=== PATIENT | female | born 1965 | race Caucasian/White ===

== ENCOUNTER → 2019-10-03 08:00 | Outpatient (CLI) | payer BC | END | disposition home or self-care (01) | LOC: D.HCCECHO 08:00 | PROVIDERS: ATTEND Internal Medicine Cardiovascular Disease | DX: R06.09 Other forms of dyspnea (principal) ==

== ENCOUNTER 2019-10-27 07:11 | Outpatient (CLI) | payer BC ==
[~2019-10-27] VITALS: Ht 167.6 cm; Wt 81.8 kg
--- NOTE | ~2019-10-27 | HEMODYNAMI ---
PATIENT:SHAN VILLELA MEDICAL RECORD: [id number] : 69 LOCATION:[facility] ADMISSION DATE: 10/27/19 Generatedon:10/27/201910:24 Patient name: SAHN VILLELA Patient #: [id number] SSN: [id number] : 1965 Date of study: 10/27/2019 Page: Of Hemodynamic Procedure Report Patient Data Patient Demographics Procedure consent was obtained First Name: SHAN Gender: Female Last Name: MANOHAR : 1965 [facility] Initial: B Age: 54 year(s) Patient #: [id number] Race: SSN: [id number] Additional ID: [id number] Contact details Address: [address] [place] [address] State: [place] City: [place] Zip code: [facility] Past Medical History Performed procedures and imaging results Date Procedure Procedure Results Comments Standard Positive->Intermediate exercise stress risk test Allergies: No known allergies Admission Admission Data Admission Date: 10/27/2019 Admission Time: 7:11 Arrival Date: 10/27/2019 Arrival Time: 0:00 Admit Source: Other Insurance Payor: Private health insurance [facility] #: [id number] Height (in.): 66 BSA: 1.91 (m2) Height (cm.): 167.64 BMI: 29.11 (kg/m2) Weight (lbs.): 180.34 Weight (kg.): 81.8 Lab Results Lab Result Date: 10/27/2019 Lab Result Time: 0:00 Biochemistry Name Units Result Min Max BUN mg/dl 20 --(----)*- 7 18 Creatinine mg/dl 0.7 --(*---)-- 0.6 1.3 eGFR ml/min 90 --(*---)-- 90 120 NONAFRICAN CBC Name Units Result Min Max Hematocrit % 38.3 *-(----)-- 42 54 Hemoglobin g/dl 12.5 *-(----)-- 13.5 17.5 Procedure Procedure Types Cath Procedure Diagnostic Procedure [facility] w/Coronaries Procedure Description Procedure Date Procedure Date: 10/27/2019 Procedure Start Time: 10:09 Procedure End Time: 10:22 Procedure Staff Name Function Damien Yan MD Performing Physician Amarilis Rogel RT Monitor Mary Diaz RN Nurse Dimitri Bustillo RT Scrub Indication Pulmonary hypertension Procedure Data Cath Procedure Fluoroscopy Diagnostic fluoroscopy Total fluoroscopy Time: 2.6 time: 2.6 min min Diagnostic fluoroscopy Total fluoroscopy dose: 338 dose: 338 mGy mGy Contrast Material Contrast Material Type Amount (ml) Isovue 370 52 Entry Location Entry Primary Successful Side Size Upsize Upsize Entry Closure Howard ccessful Closure Location (Fr) 1 (Fr) 2 (Fr) Remarks Device Remarks Radial Right 6 Fr Mechanical artery Short Compression Estimated blood loss: 5 ml Diagnostic catheters Device Type Used For End Catheter Placement DIAGNOSTIC [place] 110cm 5 Procedure Fr catheter ([id number]) Procedure Complications No complications Procedure Medications Medication Administration Route Dosage Oxygen etCO2 Nasal cannula 2 l/min Lidocaine 2% added to field 20 Heparin Flush Bag added to field 2 bags (1000units/500ml NS) 0.9% NaCl I.V. 100 ml/hr Radial Cocktail I.A. 1 syringe (Verapamil 2mg/Nitro 400mcg/Heparin 1500units) Versed I.V. 1 mg Fentanyl I.V. 50 mcg Versed I.V. 1 mg Fentanyl I.V. 50 mcg Versed I.V. 1 mg Hemodynamics Rest BSA: 1.91 (m2) HGB: 12.5 (g/dl) O2 Consumption: Estimated: 190.23 (ml/min) O2 Co nsumption indexed: Estimated:99.6 (ml/min/m) Heart Rate: 76 (bpm) Pressure Samples Time Site Value (mmHg) Purpose Heart Use Rate(bpm) 10:15 LV 123/4,11 Snapshot 65 Gradients Valve Time Site Site Mean SEP/DFP Peak To Heart Use 1 2 (mmHg) (sec/min) Peak Rate (mmHg) (bpm) Aortic 10:15 LV AO 80 Snapshots Pre Cath Intra NCS Post Cath Vital Signs Time Heart Resp SPO2 etCO2 NIBP (mmHg) Rhythm Pain Sedation Rate (ipm) (%) (mmHg) Status Level (bpm) 9:57:26 70 16 97 0 126/75(115) NSR 0 (11) 10(A) , No pain 10:01:36 76 18 97 30.4 144/86(118) NSR 0 (11) 10(A) , No pain 10:05:44 72 14 96 31.1 116/75(96) NSR 0 (11) 10(A) , No pain 10:09:56 71 15 96 21.2 109/71(90) NSR 0 (11) 9(A) , No pain 10:13:59 76 15 93 45.6 120/76(89) NSR 0 (11) 9(A) , No pain 10:18:09 71 13 94 34.2 108/74(90) NSR 0 (11) 9(A) , No pain 10:22:19 77 18 94 34.9 113/67(95) NSR 0 (11) 10(A) , No pain Medications Time Medication Route Dose Verified Delivered Reason Notes Effectiveness by by 10:03:55 Oxygen etCO2 2 l/min Damien Buffie used for Nasal Yuriy Diaz RN procedure cannula 10:04:01 Lidocaine 2% added 20ml Damien Damien for local to vial Yuriy Yan MD anesthetic field 10:04:07 Heparin Flush added 2 bags Damien Damien used for Bag to Yuriy Yan MD procedure (1000units/500ml field NS) 10:04:16 0.9% NaCl I.V. 100 Damien Buffie Per ml/hr Yuriy Diaz RN physician 10:07:06 Versed I.V. 1 mg Damien Buffie for sedation Yuriy Diaz RN 10:07:12 Fentanyl I.V. 50 mcg Damien Buffie for sedation Yuriy Diaz RN 10:11:45 Versed I.V. 1 mg Damien Buffie for sedation Yuriy Diaz RN 10:11:49 Fentanyl I.V. 50 mcg Damien Buffie for sedation Yuriy Diaz RN 10:15:12 Versed I.V. 1 mg Damien Buffie for sedation Yuriy Diaz RN 10:15:29 Radial Cocktail I.A. 1 Damien Damien for (Verapamil syringe Yuriy Yan MD vasodilation 2mg/Nitro 400mcg/Heparin 1500units) Procedure Log Time Note 9:25:03 Informed consent obtained and on chart 9:25:08 Arrival Date: 10/27/2019 12:00:00 AM 9:25:13 Insurance Payor : Private health insurance 9:25:36 Patient Height : 66 inches 9:25:41 Patient Weight : 180.34 lbs 9:25:43 Admit Source: Other 9:: Lab Result : Creatinine 0.7 mg/dl 9:: Lab Result : BUN 20 mg/dl 9:: Lab Result : Hematocrit 38.3 % 9::16 Lab Result : Hemoglobin 12.5 g/dl 9:: Lab Result : eGFR NONAFRICAN 90 ml/min 9:: Diagnostic Cath Status : Elective 9::59 Indication : Pulmonary hypertension 9:28:39 Patient allergic to No known allergies 9::44 Time tracking: Regular hours (M-F 7:00 - 5:00) 9:29:49 Plan of Care:Hemodynamics will remain stable., Cardiac rhythm will remain stable., Comfort level will be maintained., Respiratory function will remain adequate., Patient/ family verbilizes understanding of procedure., Procedure tolerated without complication., Recovers from procedure without complications.. 9:30:13 Risk of Mortality: 0.1 9:30:16 Risk of blood transfusion: 0.3 9:30:19 Risk of ISSAC: 0.4 9:30:30 Stress Test: yes; abnormal ANTERIOR WALL 9:30:34 Lab results completed and on chart. 9:30:37 Alarms reviewed by R. N. 9:30:37 Sharps counted by scrub and verified by R.N. 9:40:28 Mary Diaz RN sent for patient. Start room use. 9:50:35 Patient received from Pre/Post Procedure Room to CCL 1 Alert and oriented. Tansferred to table in Supine position. 9:50:37 Warm blankets applied, and viet hugger turned on for patient comfort. 9:50:41 Correct patient and procedure confirmed by team. 9:50:48 H&P Date Dictated: 10/27/2019 Within 30 days and on chart.. 9:50:50 Pre-procedure instructions explained to patient. 9:50:50 Pre-op teaching completed and patient verbalized understanding. 9:50:51 Family in waiting room. 9:50:53 Patient NPO since Midnight. 9:50:55 Is the patient allergic to Iodine/contrast media? No. 9:50:56 Was the patient premedicated? Yes 9:50:58 Is patient on blood thinner?No 9:51:02 Patient diabetic? No. 9:51:09 ECG and BP/O2 sat monitors applied to patient. 9:56:21 Vital chart was started 10:01:58 Baseline sample Acquired. 10:02:11 If diabetic: On Metformin? N/A 10:02:19 HCG/Urine : completed and on chart, negative 10:02:21 ----Pre-sedation anethsthesia assessment.---- 10:02:24 Previous problem with sedation/anesthesia? No ? 10:02:26 Snore? Yes 10:02:28 Sleep apnea? No 10:02:29 Deviated septum? No 10:02:31 Opens mouth fully? Yes 10:02:32 Sticks out tongue? Yes 10:02:33 Airway obstruction? No ? 10:02:36 Dentures? No ? 10:02:40 Pre procedure: right dorsailis pedis pulse 2+ Normal; easily identifiable; not easily obliterated 10:02:43 Patient pain scale 0/10 ?. 10:02:50 IV patent on arrival in left hand with 0.9% NaCl at [facility]. 10:03:01 Right Radial & Right Groin area was prepped with chlora-prep and draped in sterile fashion 10:03:09 Full Disclosure recording started 10:03:12 Baseline sample Acquired. 10:03:17 Rhythm: sinus rhythm 10:03:24 Use device set Radial Dx or PCI 10:03:25 ACIST Syringe (70772) opened to sterile field. 10:03:27 Medline Cath Pack ([id number]) opened to sterile field. 10:03:28 Bag Decanter () opened to sterile field. 10:03:28 ACIST Hand Control (53603) opened to sterile field. 10:03:29 ACIST Manifold (35328) opened to sterile field. 10:03:30 MBrace Wrist Support ([id number]) opened to sterile field. 10:03:31 NEEDLE Cook 21G 4cm Radial (C50013) opened to sterile field. 10:03:32 EMERALD Guide Wire (077-169) opened to sterile field. 10:03:33 SHEATH 6FR RAIN ([id number]) opened to sterile field. 10:03:55 Oxygen 2 l/min etCO2 Nasal cannula was administered by Mary Diaz RN; used for procedure; Verbal order read back and verified. 10:04:01 Lidocaine 2% 20ml vial added to field was administered by Damien Yan MD; for local anesthetic; Verbal order read back and verified. 10:04:07 Heparin Flush Bag (1000units/500ml NS) 2 bags added to field was administered by Damien Yan MD; used for procedure; Verbal order read back and verified. 10:04:16 0.9% NaCl 100 ml/hr I.V. was administered by Mary Diaz RN; Per physician; Verbal order read back and verified. 10:04:52 --------ALL STOP TIME OUT------ 10:04:53 Final Timeout: patient, procedure, and site verified with staff and physician. All members of the team are in agreement. 10:04:57 Right Radial & Right Groin site verified by team. 10:05:02 Fire Safety Assessment: A--An alcohol-based skin anteseptic being used preoperatively., C--Open oxygen or nitrous oxide is being used., D--An ESU, laser, or fiber-optic light is being used. 10:05:08 Physical assessment completed. ASA score P 2 - A patient with mild systemic disease as per Damien Yan MD. 10:05:12 1) 90+ Normal kidney functon but urine findings or structural abnormalities or genetic trait point to kidney disease. 10:05:15 Maximum allowable contrast dose (3.7 X eGFR X 0.75)250 ml. 10:05:20 Sedation plan: IV Moderate Sedation Medication:Versed, Fentanyl 10:05:58 ACC Patient presents with Stable Angina CCS Anginal Class 2--Slight limitation of ordinary activity. 10:07:01 Zero performed for pressure channel P1 10:07:06 Versed 1 mg I.V. was administered by Mary Diaz RN; for sedation; Verbal order read back and verified. 10:07:12 Fentanyl 50 mcg I.V. was administered by Mary Diaz RN; for sedation; Verbal order read back and verified. 10:08:51 Procedure started. 10:09:07 Local anesthetic to right radial artery with Lidocaine 2% by Damien Yan MD.INITIAL ACCESS ONLY 10:11:45 Versed 1 mg I.V. was administered by Mary Diaz RN; for sedation; Verbal order read back and verified. 10:11:49 Fentanyl 50 mcg I.V. was administered by Mary Diaz RN; for sedation; Verbal order read back and verified. 10:13:04 A 6 Fr Short sheath was inserted into the Right Radial artery 10:14:31 A DIAGNOSTIC [place]ton 110cm 5 Fr catheter ([id number]) was advanced over the wire and used for Procedure. 10:14:49 Injector settings: Ml/sec: 5, Volume: 15, 10:14:52 LV gram done using BRAGG 10:15:12 Versed 1 mg I.V. was administered by Mary Diaz RN; for sedation; Verbal order read back and verified. 10:15:13 LV hemodynamics recorded. 10:15:19 EF : 60 % 10:15:29 Radial Cocktail (Verapamil 2mg/Nitro 400mcg/Heparin 1500units) 1 syringe I.A. was administered by Damien Yan MD; for vasodilation; Verbal order read back and verified. 10:15:53 LCA angiography performed. 10:17:12 Catheter exchanged over wire. 10:17:53 GUIDE 5FR AR1.0 catheter ([id number]) opened to sterile field. 10:19:21 RCA angiography performed. 10:19:27 ACCDominant side:Right 10:19:50 ZEPHYR REGULAR TR BAND (648404) opened to sterile field. 10:20:02 Sheath removed intact; hemostasis achieved with Mechanical Compression to the Right Radial artery. 10:20:04 Procedure ended.(Physican Out) 10:20:17 Fluoroscopy time 02.60 minutes. 10:20:21 Fluoroscopy dose: 338 mGy 10:20:21 Flurop Dose total: 338 10:20:28 Dose Area Product 56423 mGy/cm. 10:20:33 Contrast amount:Isovue 370 52ml. 10:20:36 Maximum allowable dose exceeded? No. 10:20:37 Sharps counted by scrub and verified by R.N. 10:20:40 [place] band inflated with 10cc of air. 10:20:47 Post Procedure Pulses reassessed and unchanged 10:20:50 Post procedure: right dorsailis pedis pulse 2+ Normal; easily identifiable; not easily obliterated. 10:20:53 Post-procedure physical assessment completed. ASA score P 2 - A patient with mild systemic disease as per Damien Yan MD. 10:20:57 Post procedure rhythm: unchanged. 10:21:00 Estimated blood loss: 5 ml 10:21:02 Post procedure instruction explained to patient.Patient verbalizes understanding. 10:21:04 Patient needs reinforcement of post procedure teaching. 10:21:14 Procedure Complication : No complications 10:21:17 [facility] Findings: mild to moderate CAD (<70%) 10:21:19 Operative report dictated upon procedure completion. 10:21:20 See physician's report for complete and final results. 10:21:22 Report given to Pre/Post Procedure Room. 10:22:55 Vital chart was stopped 10::59 Procedure ended. 10::59 Full Disclosure recording stopped 10:23:14 End room use (Document Last) 10:23:29 End room use (Document Last) 10:23:54 End room use (Document Last) Device Usage Item Name Manufacture Quantity Catalog Hospital Part Current Minima l Lot# / Number Charge Number Stock Stock Serial# Code ACIST Acist 1 66973 [id number] [id number] [id number] 20 Syringe Medical (84131) Systems Inc Medline Medline 1 [id number] 31382 [id number] 5 Cath Pack ([id number]) Bag Microtek 1 065725 00825 629062 5 Decanter Medical Inc. () ACIST Hand Acist 1 55057 170810 990044 415501 5 Control Medical (79942) Systems Inc ACIST Acist 1 97214 062162 245821 062325 5 Manifold Medical (80934) Systems Inc MBrace Advanced 1 [id number] 631204 40311 860019 5 Wrist Vascular Support Dynamics ([id number]) NEEDLE Cook Cook Medical 1 [id number] 333419 715752 702247 5 21G 4cm Radial (Q73163) EMERALD Cardinal 1 502-455 295773 916202 797581 5 Guide Wire [facility] (885-462) SHEATH 6FR Cardinal 1 [id number] 148692 2149827 180753 5 [facility] (6682051) DIAGNOSTIC Terumo 1 40-5013 027153 716339 066237 5 [place] 110cm 5 Fr catheter (834060) GUIDE 5FR Medtronic 1 [id number] 761012 843859 001151 1 AR1.0 catheter ([id number]) ZEPHYR Cardinal 1 818998 718116 7844656 918144 5 REGULAR TR Health BAND (960339) Signature Audit Eddy Stage Time Signature Unsigned Intra-Procedure 10/27/2019 Amarilis Rogel 10:23:29 AM RT(R) Intra-Procedure 10/27/2019 Mary Diaz RN 10:23:54 AM Intra-Procedure 10/27/2019 Damien Yan MD 10:24:14 AM [facility] [address] [place] [address]
[2019-10-27] MEDS ORDERED: LIPITOR20 MG PO (08:03)
[2019-10-27] MEDS ORDERED: DILT-XR240 MG PO (08:04)
[2019-10-27] MEDS ORDERED: COREG 3.1253.125 MG PO (08:04)
[2019-10-27] MEDS ORDERED: HYDROCODONE-IB1 EAC3 PO (08:05)
[2019-10-27] MEDS ORDERED: ZOLOFT100 MG PO (08:06)
[2019-10-27] MEDS ORDERED: OMEPRAZOLE20 M1 PO (08:06)
[2019-10-27] MEDS ORDERED: HYZAAR 50-12.51 TAB PO (08:06)
[2019-10-27 08:19] VITALS: BP 143/79; Ht 167.6 cm; Wt 81.8 kg
[2019-10-27 08:35] LABS: BASOPHILS 0.6 % (0-2); EOSINOPHILS 3.6 % (0-7); HEMATOCRIT 38.3 % (36.0-48.0); HEMOGLOBIN 12.5 g/dL (12-16); IMMATURE GRANULOCYTES 0.2 % (0-5); MCH 32.4 pg (26.0-34.0); MCHC 32.6 g/dL (31.0-37.0); MCV 99.2 fL (80.0-100.0); MEAN PLATELET VOLUME 9.6 fL (7.4-10.4); MONOCYTES 6.4 % (2-11); NEUTROPHILS 69.2 % (40-80); PLATELET COUNT 273 10x3/uL (130-400); RBC 3.86 10x6/uL (4.00-5.40); RDW 13.4 % (11.5-14.5); WBC 8.2 10x3/uL (4.8-10.8)
[2019-10-27 08:36] LABS: CALC OSMOLALITY 284 mosm/kg (275-300); CALCIUM 9.2 mg/dL (8.5-10.1); CARBON DIOXIDE 29.2 mmol/L (21.0-32.0); CHLORIDE - SERUM 106 mmol/L (98-107); CREATININE - SERUM 0.7 mg/dL (0.6-1.3); GLUCOSE 125 mg/dL (74-106); POTASSIUM - SERUM 4.1 mmol/L (3.5-5.1); SODIUM 141 mmol/L (136-145); UREA NITROGEN 20 mg/dL (7-18); eGFR NON AFRICAN AMERICAN > 90 mL/min (90-120)
[2019-10-27 08:38] LABS: HCG SERUM NEGATIVE (NEGATIVE)
--- NOTE | 2019-10-27 10:31 | NUR ---
PT ARRIVED BY STRETCHER. PLACED ON MONITORS. ASSESSMENT COMPLETED. DR. WEINSTEIN AT BEDSIDE TO SPEAK WITH PT AND PT'S FAMILY. VSS AT THIS TIME. CALL LIGHT WITHIN REACH.
--- NOTE | 2019-10-27 10:45 | NUR ---
PT RESTING COMFORTABLY. VSS. RIGHT WRIST Z BAND IN PLACE. NO BLEEDING/HEMATOMA NOTED. CALL LIGHT WITHIN REACH.
--- NOTE | 2019-10-27 11:15 | NUR ---
RIGHT WRIST Z BAND IN PLACE. NO BLEEDING/HEMATOMA NOTED. CALL LIGHT WITHIN REACH. VSS.
--- NOTE | 2019-10-27 11:31 | NUR ---
PT RESTING COMFORTABLY. VSS. 2cc OF AIR REMOVED FROM Z BAND. NO BLEEDING/HEMATOMA NOTED. CALL LIGHT WITHIN REACH.
--- NOTE | 2019-10-27 11:45 | NUR ---
3cc OF AIR REMOVED FROM Z BAND. NO BLEEDING/HEMATOMA NOTED. CALL LIGHT WITHIN REACH. VSS. PT RESTING COMFORTABLY.
--- NOTE | 2019-10-27 12:00 | NUR ---
4cc OF AIR REMOVED FROM Z BAND. NO BLEEDING/HEMATOMA NOTED. CALL LIGHT WITHIN REACH. VSS. PT RESTING COMFORTABLY.
--- NOTE | 2019-10-27 12:15 | NUR ---
4cc OF AIR REMOVED FROM Z BAND. NO BLEEDING/HEMATOMA NOTED. CALL LIGHT WITHIN REACH.
--- NOTE | 2019-10-27 12:16 | NUR ---
PT'S HEAD OF BED INC TO 30 DEGREES. TOLERATED WELL. RIGHT WRIST Z BAND IN PLACE. NO BLEEDING/HEMATOMA NOTED. VSS. PT SET UP WITH SANDWICH TRAY AND DRINK. DENIES NAUSEA/PAIN.
--- NOTE | 2019-10-27 12:20 | NUR ---
Z BAND REMOVED. NO BLEEDING/HEMATAMA NOTED. DRESSING APPLIED. RIGHT WRIST BRACE IN PLACE. PT INSTRUCTED TO NOT FLEX OR BEND RIGHT WRIST.
--- NOTE | 2019-10-27 12:25 | NUR ---
PIV D/C'D WITH CATH TIP INTACT. TOLERATED WELL. PT INSTRUCTED TO GET UP AND DRESSED. AMBULATED TO RESTROOM. VOIDED WITHOUT DIFFICULTY.
--- NOTE | 2019-10-27 12:30 | NUR ---
DISCUSSED DISCHARGE INSTRUCTIONS WITH PT AND PT'S FAMILY. THEY VOICED UNDERSTANDING.
--- NOTE | 2019-10-27 12:40 | NUR ---
RIGHT WRIST DRESSING C/D/I. NO S/S OF HEMATOMA NOTED. PT TAKEN OUT TO VEHICLE BY WHEELCHAIR. NO S/S OF DISTRESS NOTED. ALL BELONGINGS AND PAPERWORK IN HAND.
== END 2019-10-27 12:40 | disposition home or self-care (01) ==
LOC: D.CATH 07:11
PROVIDERS: ATTEND Internal Medicine Cardiovascular Disease
DX: R94.30 Abnormal result of cardiovascular function study, unspecified (principal); R06.02 Shortness of breath; I20.9 Angina pectoris, unspecified; I10 Essential (primary) hypertension; R07.9 Chest pain, unspecified; E78.5 Hyperlipidemia, unspecified

== ENCOUNTER → 2020-01-09 15:23 | Outpatient (CLI) | payer BC ==
[2019-10-27 08:19] VITALS: BMI 29.1
[~2020-01-09 15:23] MED LIST: COREG 3.1253.125 MG PO; DILT-XR240 MG PO; HYDROCODONE-IB1 EAC3 PO; HYZAAR 50-12.51 TAB PO; LIPITOR20 MG PO; OMEPRAZOLE20 M1 PO; ZOLOFT100 MG PO
== END | disposition home or self-care (01) ==
LOC: D.MRI 15:23
PROVIDERS: ATTEND Family Medicine
DX: M54.16 Radiculopathy, lumbar region (principal); Z32.00 Encounter for pregnancy test, result unknown